=== PATIENT | male | born 1975 | race Caucasian/White ===

== ENCOUNTER 2017-02-19 20:19 | Emergency (ER) | payer SELFPAY ==
--- NOTE | ~2017-02-19 | ER ---
PATIENT'S NAME: GRAEME DAVEY [facility] AGE: 41 Y [address] ROOM: [place] [address] LOCATION: [facility] ADMIT DATE: 02/19/2017 ER/Outpatient Report DISCHARGE DATE: 02/19/2017 FAMILY PHYSICIAN: PHYSICIAN, NO ATTENDING PHYSICIAN: Eva French ARRIVAL TIME: 2021. ENCOUNTER TIME: 2031. SUBJECTIVE: CHIEF COMPLAINT: Upper respiratory congestion, fever, and body aches. HISTORY OF PRESENT ILLNESS: The patient is a pleasant, 41-year-old male complaining of upper respiratory congestion and a fever of 104 that started this morning. States it has been gradually worsening all day. Feels he has a sore throat as well. Also with some nausea, but no vomiting. Has a headache as well. Cough, he describes, is dry and active constantly. Disrupting his rest so far, but he has not had it through a sleep cycle yet. On treatment with ibuprofen, Tylenol, and DayQuil. PERTINENT REVIEW OF SYSTEMS: All systems reviewed by me and negative unless otherwise stated in the HPI. MEDICATIONS: 1. Ibuprofen 800 mg at 1915 hours. 2. Tylenol 325 mg at 1915 hours. 3. DayQuil 2 tablets by mouth at 1915 hours. 4. No other medications routinely. ALLERGIES: NO KNOWN DRUG ALLERGIES. PAST MEDICAL HISTORY: None. PAST SURGICAL HISTORY: Hernia, "chest surgery," and a kidney stent. SOCIAL HISTORY: PATIENT'S NAME: GRAEME DAVEY [facility] AGE: 41 Y [address] ROOM: [place] [address] LOCATION: [facility] ADMIT DATE: 02/19/2017 ER/Outpatient Report DISCHARGE DATE: 02/19/2017 FAMILY PHYSICIAN: PHYSICIAN, NO ATTENDING PHYSICIAN: Eva French Nonsmoker. Denies drug or alcohol use. OBJECTIVE: VITAL SIGNS: Height 5 feet 7 inches, weight 96.4, blood pressure 162/79, pulse 107, respiratory rate 20 breaths per minute, temperature 103.5 degrees Fahrenheit taken tympanically, and SpO2 at 96% on room air. Pain level 7/10. GENERAL: Well developed, well nourished, and in no acute distress. Calm, alert, and oriented to person, place, and time. HEENT: Head is atraumatic and normocephalic. Eyes with conjunctivae clear but dull, no discharge. Pupils are PERRLA bilaterally. EOMFI bilaterally. No nystagmus. Ears with tympanic membranes showing good light reflex bilaterally. No fluid noted. Auditory canals are patent bilaterally. Nose with moderate swelling on the turbinates with some erythema, but no drainage. Throat with midline uvula. Mildly erythematous oropharynx. Minimal hypertrophy of the tonsils. NECK: Supple with some cervical lymphadenopathy mildly. Trachea midline. No JVD. LUNGS: Clear to auscultation bilaterally. No wheezes, crackles, rhonchi, or stridor. Normal respiratory effort. HEART: Regular rate and rhythm. No S3, S4, or extra sounds. LABORATORY DATA: Rapid influenza was negative for both influenza A and B. Lactate at 1.4. Procalcitonin 0.13. CBC with hemogram within normal limits. White count at 9.2. Auto diff shows a marginally depressed lymphocyte number, but otherwise within normal limits. CMS with sodium 139, potassium 3.3, chloride 107, CO2 of 22, anion gap 13.3, glucose 97, calcium 8.5, BUN 18, and creatinine 1.2. Total protein 7.8. Albumin 3.8, globulin 4.0, and A/G ratio 1.0. Total bilirubin 0.6. Alkaline phosphatase 57, AST 33, and ALT 73. GFR over 60. Discussed all lab work in detail with the patient. ASSESSMENT: 1. Influenza. 2. Viral syndrome. PLAN: We will treat the patient empirically for clinical influenza. He tested negative for influenza A and B, but has all the signs and symptoms of a viral syndrome at this time. We will start on Tamiflu and provide him with some cough syrup to manage symptoms. Also provided him with a note to stay home from work until fever-free for 24 hours. The patient was agreeable to this plan. Advised him to follow up with his regular physician in the next 7 to 10 PATIENT'S NAME: GRAEME DAVEY [facility] AGE: 41 Y [address] ROOM: [place] [address] LOCATION: ED ADMIT DATE: 02/19/2017 ER/Outpatient Report DISCHARGE DATE: 02/19/2017 FAMILY PHYSICIAN: PHYSICIAN, NO ATTENDING PHYSICIAN: Eva French days, or sooner if not improving. Discussed that this will have to run its course and may take an additional 7 days or so. The patient verbalized understanding. Take all medications as prescribed. Use ibuprofen or Tylenol as directed for discomfort or fever. Do not use if allergic or hypersensitive. Return to the emergency department or primary care provider if symptoms persist or worsen. ERIN LOVE PA-C FOR EVA FRENCH MD SMR/modl /[id number] d: 02/20/17 1855 t: 02/27/17 1005, OUTPATIENT REPORT
[~2017-02-19 20:19] MED LIST: ADVIL200 M2 PO; COLACE100 MG PO; DETROL LA2 MG PO; FLOMAX0.4 MG PO; NORCO 5-325 MG1 TAB PO
[2017-02-19 21:31] LABS: BASOPHIL # 0.1 K/uL (0.0-0.2); BASOPHIL % 1.1 %; EOSINOPHIL # 0.1 K/uL (0.0-0.5); EOSINOPHIL % 1.1 %; HEMATOCRIT 44.2 % (37.0-53.0); IMMATURE GRANULOCYTE % 0.3 %; LYMPHOCYTE # 0.6 K/uL (0.8-4.0); LYMPHOCYTE % 6.7 %; MCH 28.8 pg (27.0-34.0); MCHC 33.9 gm/dL (32.0-36.5); MONOCYTE # 0.9 K/uL (0.0-1.0); MONOCYTE % 10.1 %; MPV 9.4 fl (9.4-12.4); NEUTROPHIL # (ANC) 7.5 K/uL (1.4-9.0); NEUTROPHIL % 80.7 %; NRBC % 0 /100WBC (0-0.00); PLATELET COUNT 202 K/uL (150-450); RDW-CV 12.2 % (11.9-14.6); WBC 9.2 K/uL (4.0-11.0)
[2017-02-19 21:48] LABS: ALBUMIN 3.8 gm/dL (3.5-5.0); ALK PHOS 57 IU/L (33-138); ALT 73 IU/L (12-78); ANION GAP 13.3 (10.0-19.0); AST 33 IU/L (10-40); BLOOD UREA NITROGEN 18 mg/dL (6-24); CALCIUM 8.5 mg/dL (8.5-10.5); CHLORIDE 107 mMol/L (96-110); CO2 22 mMol/L (22-32); CREATININE 1.2 mg/dL (0.6-1.3); ESTIMATED GFR (MDRD EQUATION) > 60; POTASSIUM 3.3 mMol/L (3.7-5.1); SODIUM 139 mMol/L (135-145); TOTAL BILIRUBIN 0.6 mg/dL (0.0-1.5); TOTAL PROTEIN 7.8 g/dL (6.0-8.4)
== END 2017-02-19 22:07 | disposition disaster alternative care site (69) ==
LOC: GMED 20:19
PROVIDERS: Emergency Medicine
DX: J11.1 Influenza due to unidentified influenza virus with other respiratory manifestations (principal); B34.9 Viral infection, unspecified